=== PATIENT | female | born 1935 | race African-American/Black ===

== ENCOUNTER 2020-12-19 13:30 | Inpatient (IN) | payer BC, OTHER ==
[~2020-12-19] VITALS: Ht 170.2 cm; Wt 76.8 kg
[2020-12-19 14:31] LABS: Hematocrit 29.6 % (36.0-46.0); Hemoglobin 10.1 g/dL (12.2-16.2); Mean Corpuscular Hemoglobin 30.6 pg (28.0-32.0); Mean Corpuscular Volume 89.9 fL (80.0-100.0); Platelet Count (auto) 282 10^3/uL (140-450); Red Cell Distribution Width 13.4 % (11.8-14.3); White Blood Cell 4.5 10^3/uL (4.4-10.8)
[2020-12-19 14:39] LABS: Basophils % (manual) 0 (0.0-2.0); Blast Cells 0; Metamyelocytes % 0; Myelocytes % 0; Promyelocytes % 0; Reactive Lymphocytes 0
[2020-12-19 14:43] LABS: Albumin 3.1 g/dL (3.4-5.0); Calcium 9.7 mg/dL (8.5-10.1); Magnesium 2.4 mg/dL (1.6-2.6)
[2020-12-19 14:48] LABS: BUN/Creatinine Ratio 7.9; Bilirubin, Total 0.5 mg/dL (0.2-1.0); Total Protein 7.8 g/dL (6.4-8.2)
[2020-12-19 14:57] LABS: Band Neutrophils % (manual) 5; Eosinophils % (manual) 3 (0-7); Lymphocytes % (manual) 24 (10.0-50.0); Monocytes % (manual) 9 (0-12)
[2020-12-19] MEDS ORDERED: ACETAMINOPHEN 500 MG TAB PO PRN (17:30)
[2020-12-19] MEDS ORDERED: HYDROcodone-ACET 5/325MG TAB PO PRN (17:30)
[2020-12-19] MEDS ORDERED: ONDANSETRON HCL 4 MG/2 ML VIAL IV PRN (17:30)
[2020-12-19] MEDS: SODIUM CHLORIDE 0.9% 1,000 ML IV SCH (18:13)
[2020-12-19] MEDS ORDERED: LACTULOSE 20Gm/30ML SOLN PO PRN (18:15)
[2020-12-19 19:44] LABS: Thyroid Stimulating Hormone 0.39 uIU/mL (0.358-3.74)
[2020-12-19 20:10] VITALS: BP 191/72
[2020-12-19] MEDS ORDERED: DOCUSATE SOD 100 MG CAP PO ONE (20:45)
[2020-12-19] MEDS ORDERED: hydrALAZINE HCL 20 MG/ML VL ONE (20:50)
[2020-12-19] MEDS: hydrALAZINE HCL 20 MG/ML VL IV PRN (20:53)
[2020-12-19] MEDS: DOCUSATE SOD 100 MG CAP PO SCH (21:02)
[2020-12-19] MEDS ORDERED: ONDANSETRON HCL 4 MG/2 ML VIAL ONE (21:30)
[2020-12-19 22:00] VITALS: BP 152/62
[2020-12-20 02:49] LABS: Urine Bacteria NONE SEEN /hpf (None Seen); Urine Blood 1+ /uL (Negative); Urine Specific Gravity 1.016 (1.001-1.035); Urine WBC 23 /hpf (0 - 5)
[2020-12-20 05:00] VITALS: BP 135/62
[2020-12-20] MEDS: SODIUM CHLORIDE 0.9% 1,000 ML IV SCH ×2 (06:07→20:10)
[2020-12-20 08:27] VITALS: BP 134/70
[2020-12-20] MEDS: FAMOTIDINE 20 MG TAB PO SCH (08:41)
[2020-12-20] MEDS: PANTOPRAZOLE 40 MG TAB PO SCH (08:41)
[2020-12-20] MEDS: DOCUSATE SOD 100 MG CAP PO SCH ×2 (08:41→22:18)
[2020-12-20] MEDS ORDERED: LACTULOSE 20Gm/30ML SOLN PO PRN (12:45)
[2020-12-20 12:51] VITALS: BP 121/50
[2020-12-20] MEDS ORDERED: ALBUTEROL SULF 2.5 MG/0.5ML(0.5%) NEB SOLN NEB PRN (13:00)
[2020-12-20] MEDS: cefTRIAXone 1GM/50ML D5W 50 ML IV SCH (13:14)
[2020-12-20] MEDS ORDERED: ALBUTEROL SULF HFA 90MCG INH 200DOSE IN SCH (14:00)
[2020-12-20 16:18] VITALS: BP 121/50
[2020-12-20 16:54] VITALS: BP 111/59
[2020-12-20] MEDS ORDERED: ALBUAER3 IN (18:06)
[2020-12-20] MEDS ORDERED: APIX5TAB PO (18:06)
[2020-12-20] MEDS ORDERED: BENA5TAB5 PO (18:06)
[2020-12-20] MEDS ORDERED: LISI20TA28 PO (18:06)
[2020-12-20] MEDS ORDERED: NIFE1TAB36 PO (18:06)
[2020-12-20] MEDS ORDERED: ASPI-498 PO (18:06)
[2020-12-20] MEDS ORDERED: ANAS1TAB7 PO (18:06)
[2020-12-20 22:00] VITALS: BP_SYST 154; BP_SYST 158; BP_DIAS 71; BP_DIAS 72
[2020-12-20] MEDS: hydrALAZINE HCL 20 MG/ML VL IV PRN (22:19)
[2020-12-21 05:00] VITALS: BP 159/73
[2020-12-21] MEDS: hydrALAZINE HCL 20 MG/ML VL IV PRN (06:42)
[2020-12-21 08:00] VITALS: BP 159/73
[2020-12-21 08:14] VITALS: BP 139/63
[2020-12-21] MEDS: DOCUSATE SOD 100 MG CAP PO SCH (09:32)
[2020-12-21] MEDS: SODIUM CHLORIDE 0.9% 1,000 ML IV SCH (09:32)
[2020-12-21] MEDS: cefTRIAXone 1GM/50ML D5W 50 ML IV SCH (09:32)
[2020-12-21] MEDS: PANTOPRAZOLE 40 MG TAB PO SCH (09:33)
[2020-12-21] MEDS: FAMOTIDINE 20 MG TAB PO SCH (09:33)
[2020-12-21 19:25] LABS: Folate (Folic Acid) 11.1 ng/mL (5.38-24)
== END 2020-12-21 10:39 | disposition left against medical advice (07) | DRG 391 ==
LOC: ER 13:30 → EDBD 13:30 → OVERFLOW 17:19 → ER 19:50 → CENTRAL 20:00
PROVIDERS: ADMIT Nurse Practitioner Acute Care; ATTEND Nurse Practitioner Acute Care
DX: K59.00 Constipation, unspecified (principal); N17.0 Acute kidney failure with tubular necrosis; E44.0 Moderate protein-calorie malnutrition; R62.7 Adult failure to thrive; D64.9 Anemia, unspecified; J44.9 Chronic obstructive pulmonary disease, unspecified; Z20.822 Contact with and (suspected) exposure to COVID-19; Z85.3 Personal history of malignant neoplasm of breast; I10 Essential (primary) hypertension; Z86.73 Personal history of transient ischemic attack (TIA), and cerebral infarction without residual deficits; Z88.6 Allergy status to analgesic agent; Z88.5 Allergy status to narcotic agent; Z88.2 Allergy status to sulfonamides; I25.10 Atherosclerotic heart disease of native coronary artery without angina pectoris; Z82.49 Family history of ischemic heart disease and other diseases of the circulatory system; Z90.11 Acquired absence of right breast and nipple; Z90.710 Acquired absence of both cervix and uterus; Z95.0 Presence of cardiac pacemaker; Z53.21 Procedure and treatment not carried out due to patient leaving prior to being seen by health care provider
CPT/HCPCS: 36415; 71045; 74176; 80053; 81001; 82306; 82607; 82728; 82746; 83615; 83735; 84425; 84443; 84484; 85007; 85027; 85379; 85652; 86141; 87081; 87426; 93005; 96361; 96374; 96375; G0378; J0696; J2405

== ENCOUNTER 2021-03-31 18:52 | Emergency (ER) | payer OTHER ==
[~2021-03-31] VITALS: Ht 170.2 cm; Wt 69.9 kg
[~2021-03-31 18:52] MED LIST: ALBUAER3 IN; ANAS1TAB7 PO; APIX5TAB PO; ASPI-498 PO; BENA5TAB5 PO; LISI20TA28 PO; NIFE1TAB36 PO
[2021-03-31] MEDS ORDERED: methylPREDNISolone SOD SUCC 125 MG/2 ML VL IV ONE (19:00)
[2021-03-31 19:52] LABS: Basophils # (auto) 0.1 10 ^3/uL (0-0.2); Basophils % (auto) 1.5 % (0.0-2.0); Eosinophils # (auto) 0.1 10 ^3/uL (0-0.8); Hematocrit 32.8 % (36.0-46.0); Hemoglobin 10.9 g/dL (12.2-16.2); Lymphocytes # (auto) 1.2 10 ^3/uL (0.4-5.4); Lymphocytes % (auto) 30.4 % (10.0-50.0); Mean Corpuscular Hemoglobin 30.2 pg (28.0-32.0); Mean Corpuscular Hgb Conc. 33.2 g/dL (32.0-36.0); Mean Corpuscular Volume 90.9 fL (80.0-100.0); Monocytes # (auto) 0.3 10 ^3/uL (0-1.3); Monocytes % (auto) 8.5 % (0.0-12.0); Neutrophils # (auto) 2.2 10 ^3/uL (1.6-8.6); Neutrophils % (auto) 57.6 % (37.0-80.0); Red Blood Cells 3.61 10^6/uL (4.0-5.20); White Blood Cell 3.8 10^3/uL (4.4-10.8)
[2021-03-31 20:09] LABS: Chloride 112 mmol/L (98-107); Potassium 3.8 mmol/L (3.5-5.1); Sodium 142 mmol/L (136-145)
[2021-03-31 20:14] LABS: Alanine Aminotransferase 13 U/L (13-56); Albumin 3.4 g/dL (3.4-5.0); Anion Gap 8 (5-15); Aspartate Aminotransferase 16 U/L (15-37); BUN/Creatinine Ratio 12.8; Blood Urea Nitrogen 20 mg/dL (7-18); Calcium 9.5 mg/dL (8.5-10.1); Carbon Dioxide 22 mmol/L (21-32); GFR African American 40 mL/min; GFR Non-African American 33 mL/min; Glucose 144 mg/dL (74-106); Magnesium 2.3 mg/dL (1.6-2.6)
[2021-03-31 20:19] LABS: Alkaline Phosphatase 53 U/L (45-117); Bilirubin, Total 0.4 mg/dL (0.2-1.0); Total Protein 7.7 g/dL (6.4-8.2)
[2021-04-01] MEDS ORDERED: predniSONE 20 MG TAB PO ONE (00:15)
[2021-04-01 00:50] VITALS: BP 178/84
== END 2021-04-01 06:34 | disposition home or self-care (01) ==
LOC: EDBD 18:52 → ER 18:54
DX: R06.00 Dyspnea, unspecified (principal); F41.9 Anxiety disorder, unspecified; I25.2 Old myocardial infarction; Z86.73 Personal history of transient ischemic attack (TIA), and cerebral infarction without residual deficits; Z90.710 Acquired absence of both cervix and uterus; Z95.0 Presence of cardiac pacemaker; Z88.6 Allergy status to analgesic agent; Z88.2 Allergy status to sulfonamides
CPT/HCPCS: 36415; 71045; 80053; 83735; 83880; 84484; 85025; 85379; 93005

== ENCOUNTER 2021-04-10 13:51 | Emergency (ER) | payer OTHER ==
[2021-04-10] MEDS ORDERED: ALBUTEROL SULF 2.5 MG/0.5ML(0.5%) NEB SOLN NEB ONE (14:30)
[2021-04-10] MEDS ORDERED: SIMV-8 PO (14:33)
[2021-04-10 14:43] LABS: Basophils # (auto) 0 10 ^3/uL (0-0.2); Basophils % (auto) 1.2 % (0.0-2.0); Eosinophils # (auto) 0.1 10 ^3/uL (0-0.8); Eosinophils % (auto) 2.2 % (0.0-7.0); Hematocrit 34.7 % (36.0-46.0); Hemoglobin 11.3 g/dL (12.2-16.2); Lymphocytes % (auto) 27.7 % (10.0-50.0); Mean Corpuscular Hemoglobin 29.9 pg (28.0-32.0); Mean Corpuscular Hgb Conc. 32.5 g/dL (32.0-36.0); Mean Corpuscular Volume 91.8 fL (80.0-100.0); Monocytes # (auto) 0.4 10 ^3/uL (0-1.3); Monocytes % (auto) 9.9 % (0.0-12.0); Neutrophils # (auto) 2.1 10 ^3/uL (1.6-8.6); Nucleated Red Blood Cells % 0.2 %; Red Blood Cells 3.78 10^6/uL (4.0-5.20); Red Cell Distribution Width 14.2 % (11.8-14.3); White Blood Cell 3.6 10^3/uL (4.4-10.8)
[2021-04-10 15:02] LABS: INR 1.05 (0.9-1.15); Partial Thromboplastin Time 24.3 sec (23.6-33.0)
[2021-04-10 15:07] LABS: Albumin 3.4 g/dL (3.4-5.0); Anion Gap 7 (5-15); Blood Urea Nitrogen 17 mg/dL (7-18); Calcium 9.7 mg/dL (8.5-10.1); Carbon Dioxide 23 mmol/L (21-32); Chloride 112 mmol/L (98-107); Glucose 96 mg/dL (74-106); Potassium 4.3 mmol/L (3.5-5.1); Sodium 142 mmol/L (136-145)
[2021-04-10 15:12] LABS: Alanine Aminotransferase 17 U/L (13-56); Alkaline Phosphatase 47 U/L (45-117); Aspartate Aminotransferase 19 U/L (15-37); Bilirubin, Total 0.4 mg/dL (0.2-1.0); GFR African American 50 mL/min; GFR Non-African American 41 mL/min; Total Protein 7.6 g/dL (6.4-8.2)
[2021-04-10] MEDS ORDERED: SODIUM CHLORIDE 0.9% 500 ML IV ONE (17:15)
[2021-04-10 19:40] VITALS: BP 148/69
[2021-04-10 20:21] LABS: Urine Bacteria NONE SEEN /hpf (None Seen); Urine Blood Negative /uL (Negative); Urine Specific Gravity 1.013 (1.001-1.035); Urine WBC 1 /hpf (0 - 5)
== END 2021-04-10 21:18 | disposition home or self-care (01) ==
LOC: EDBD 13:51 → ER 13:51
DX: R06.00 Dyspnea, unspecified (principal); C79.51 Secondary malignant neoplasm of bone; I25.10 Atherosclerotic heart disease of native coronary artery without angina pectoris; E78.5 Hyperlipidemia, unspecified; I10 Essential (primary) hypertension; I25.2 Old myocardial infarction; Z86.73 Personal history of transient ischemic attack (TIA), and cerebral infarction without residual deficits; Z90.710 Acquired absence of both cervix and uterus; Z95.0 Presence of cardiac pacemaker; Z20.822 Contact with and (suspected) exposure to COVID-19
CPT/HCPCS: 36415; 71045; 73502; 73552; 80053; 81001; 83735; 83880; 84484; 85025; 85379; 85610; 85730; 87426; 93005; 94640; 96360; 96361; 99285; J7040

== ENCOUNTER 2021-04-26 08:19 | Emergency (ER) | payer OTHER ==
[~2021-04-26] VITALS: Ht 167.6 cm; Wt 63.5 kg
[~2021-04-26 08:19] MED LIST changes: -BENA5TAB5 PO; +BENA5TAB9 PO; +SIMV-8 PO
[2021-04-26 08:35] VITALS: BP 136/76
[2021-04-26] MEDS ORDERED: SODIUM CHLORIDE 0.9% 1,000 ML IV ONE (08:45)
[2021-04-26] MEDS ORDERED: DOCUSATE SOD 100 MG CAP PO ONE (08:45)
[2021-04-26 09:39] LABS: Basophils # (auto) 0.1 10 ^3/uL (0-0.2); Basophils % (auto) 2.3 % (0.0-2.0); Eosinophils # (auto) 0.1 10 ^3/uL (0-0.8); Hematocrit 34.7 % (36.0-46.0); Hemoglobin 11.2 g/dL (12.2-16.2); Lymphocytes % (auto) 35.2 % (10.0-50.0); Mean Corpuscular Hemoglobin 29.5 pg (28.0-32.0); Mean Corpuscular Hgb Conc. 32.2 g/dL (32.0-36.0); Mean Corpuscular Volume 91.6 fL (80.0-100.0); Monocytes # (auto) 0.2 10 ^3/uL (0-1.3); Monocytes % (auto) 8.6 % (0.0-12.0); Neutrophils # (auto) 1.3 10 ^3/uL (1.6-8.6); Neutrophils % (auto) 48.9 % (37.0-80.0); Nucleated Red Blood Cells % 0.1 %; Red Blood Cells 3.79 10^6/uL (4.0-5.20); White Blood Cell 2.8 10^3/uL (4.4-10.8)
[2021-04-26 09:54] LABS: Albumin 3.5 g/dL (3.4-5.0); Anion Gap 3 (5-15); Blood Urea Nitrogen 15 mg/dL (7-18); Calcium 9.8 mg/dL (8.5-10.1); Carbon Dioxide 27 mmol/L (21-32); Chloride 111 mmol/L (98-107); Glucose 100 mg/dL (74-106); Potassium 4.1 mmol/L (3.5-5.1); Sodium 141 mmol/L (136-145)
[2021-04-26 10:01] LABS: Alanine Aminotransferase 21 U/L (13-56); Alkaline Phosphatase 48 U/L (45-117); Aspartate Aminotransferase 22 U/L (15-37); BUN/Creatinine Ratio 13.8; Bilirubin, Total 0.3 mg/dL (0.2-1.0); GFR African American 61 mL/min; GFR Non-African American 51 mL/min; Total Protein 7.7 g/dL (6.4-8.2)
[2021-04-26 12:12] LABS: Urine Bacteria NONE SEEN /hpf (None Seen); Urine Blood Negative /uL (Negative); Urine Specific Gravity 1.017 (1.001-1.035); Urine WBC 1 /hpf (0 - 5)
== END 2021-04-26 11:47 | disposition home or self-care (01) ==
LOC: EDBD 08:19 → ER 08:19
DX: R10.11 Right upper quadrant pain (principal); D64.9 Anemia, unspecified; I25.10 Atherosclerotic heart disease of native coronary artery without angina pectoris; I10 Essential (primary) hypertension; I25.2 Old myocardial infarction; E03.9 Hypothyroidism, unspecified; E78.5 Hyperlipidemia, unspecified; E11.9 Type 2 diabetes mellitus without complications; Z86.73 Personal history of transient ischemic attack (TIA), and cerebral infarction without residual deficits; Z95.0 Presence of cardiac pacemaker; Z90.710 Acquired absence of both cervix and uterus; Z79.82 Long term (current) use of aspirin; Z79.899 Other long term (current) drug therapy; Z88.2 Allergy status to sulfonamides; Z88.5 Allergy status to narcotic agent
CPT/HCPCS: 36415; 71045; 74176; 80053; 81001; 84484; 85025

== ENCOUNTER 2021-05-25 11:05 | Emergency (ER) | payer OTHER ==
[~2021-05-25] VITALS: Ht 170.2 cm; Wt 69.4 kg
[2021-05-25 11:56] VITALS: BP 118/56
[2021-05-25] MEDS ORDERED: FLEET ENEMA(ADULT) 135 ML PR ONE (12:15)
[2021-05-25 13:51] LABS: Basophils # (auto) 0 10 ^3/uL (0-0.2); Basophils % (auto) 1.1 % (0.0-2.0); Eosinophils # (auto) 0.1 10 ^3/uL (0-0.8); Eosinophils % (auto) 2.7 % (0.0-7.0); Hematocrit 35.3 % (36.0-46.0); Hemoglobin 11.7 g/dL (12.2-16.2); Lymphocytes % (auto) 26.5 % (10.0-50.0); Mean Corpuscular Hgb Conc. 33.1 g/dL (32.0-36.0); Mean Corpuscular Volume 90.8 fL (80.0-100.0); Monocytes # (auto) 0.4 10 ^3/uL (0-1.3); Monocytes % (auto) 9.5 % (0.0-12.0); Neutrophils # (auto) 2.2 10 ^3/uL (1.6-8.6); Neutrophils % (auto) 60.2 % (37.0-80.0); Nucleated Red Blood Cells % 0.1 %; Red Blood Cells 3.89 10^6/uL (4.0-5.20); Red Cell Distribution Width 14.3 % (11.8-14.3); White Blood Cell 3.7 10^3/uL (4.4-10.8)
[2021-05-25 13:55] LABS: Albumin 3.8 g/dL (3.4-5.0); Calcium 9.9 mg/dL (8.5-10.1); Potassium 4.9 mmol/L (3.5-5.1)
[2021-05-25 13:58] LABS: BUN/Creatinine Ratio 14.5; Bilirubin, Total 0.7 mg/dL (0.2-1.0); Total Protein 8.4 g/dL (6.4-8.2)
[2021-05-27] MEDS ORDERED: fentaNYL Drip 2500mCg/250mlNS 250 ML IV ONE (18:03)
== END 2021-05-25 19:49 | disposition left against medical advice (07) ==
LOC: ER 11:05
DX: K59.00 Constipation, unspecified (principal); I10 Essential (primary) hypertension; E78.5 Hyperlipidemia, unspecified; I25.2 Old myocardial infarction; Z86.73 Personal history of transient ischemic attack (TIA), and cerebral infarction without residual deficits; Z53.29 Procedure and treatment not carried out because of patient's decision for other reasons; Z90.710 Acquired absence of both cervix and uterus; Z95.0 Presence of cardiac pacemaker; Z88.6 Allergy status to analgesic agent; Z88.2 Allergy status to sulfonamides
CPT/HCPCS: 36415; 74176; 80053; 85025; 93005

== ENCOUNTER → 2021-08-09 | Outpatient (CLI) | payer OTHER ==
[2021-08-09 10:16] LABS: Urine Bacteria FEW /hpf (None Seen); Urine Blood Negative /uL (Negative); Urine Mucus FEW (None Seen); Urine Specific Gravity 1.023 (1.001-1.035); Urine WBC 2 /hpf (0 - 5)
[2021-08-09 10:32] LABS: Potassium 4.1 mmol/L (3.5-5.1)
[2021-08-09 10:45] LABS: Basophils # (auto) 0 10 ^3/uL (0-0.2); Basophils % (auto) 1.6 % (0.0-2.0); Eosinophils # (auto) 0.1 10 ^3/uL (0-0.8); Eosinophils % (auto) 2.4 % (0.0-7.0); Hematocrit 36.1 % (36.0-46.0); Hemoglobin 11.8 g/dL (12.2-16.2); Lymphocytes # (auto) 0.9 10 ^3/uL (0.4-5.4); Lymphocytes % (auto) 32.4 % (10.0-50.0); Mean Corpuscular Hemoglobin 29.7 pg (28.0-32.0); Mean Corpuscular Hgb Conc. 32.8 g/dL (32.0-36.0); Mean Corpuscular Volume 90.7 fL (80.0-100.0); Monocytes # (auto) 0.3 10 ^3/uL (0-1.3); Neutrophils # (auto) 1.5 10 ^3/uL (1.6-8.6); Neutrophils % (auto) 53.6 % (37.0-80.0); Nucleated Red Blood Cells % 0.2 %; Red Blood Cells 3.98 10^6/uL (4.0-5.20); Red Cell Distribution Width 13.2 % (11.8-14.3); White Blood Cell 2.8 10^3/uL (4.4-10.8)
[2021-08-09 10:48] LABS: Albumin 3.8 g/dL (3.4-5.0); BUN/Creatinine Ratio 15.3; Bilirubin, Total 0.4 mg/dL (0.2-1.0); Calcium 10.2 mg/dL (8.5-10.1); Total Protein 8.6 g/dL (6.4-8.2)
== END | disposition home or self-care (01) ==
LOC: LAB 09:05
PROVIDERS: ATTEND Student in an Organized Health Care Education/Training Program
DX: I10 Essential (primary) hypertension (principal)
CPT/HCPCS: 36415; 80053; 80061; 81001; 84443; 85025

== ENCOUNTER 2021-08-11 08:49 | Inpatient (IN) | payer OTHER, MEDICAID ==
[~2021-08-11] VITALS: Ht 170.2 cm; Wt 76.6 kg
[2021-08-11 13:20] LABS: Basophils # (auto) 0 10 ^3/uL (0-0.2); Basophils % (auto) 1.3 % (0.0-2.0); Eosinophils # (auto) 0.1 10 ^3/uL (0-0.8); Eosinophils % (auto) 2.7 % (0.0-7.0); Hematocrit 36.8 % (36.0-46.0); Hemoglobin 12.1 g/dL (12.2-16.2); Lymphocytes % (auto) 34.7 % (10.0-50.0); Mean Corpuscular Hemoglobin 29.9 pg (28.0-32.0); Mean Corpuscular Volume 90.5 fL (80.0-100.0); Monocytes # (auto) 0.2 10 ^3/uL (0-1.3); Monocytes % (auto) 8.1 % (0.0-12.0); Neutrophils # (auto) 1.6 10 ^3/uL (1.6-8.6); Neutrophils % (auto) 53.2 % (37.0-80.0); Nucleated Red Blood Cells % 0.2 %; Red Blood Cells 4.06 10^6/uL (4.0-5.20); Red Cell Distribution Width 13.5 % (11.8-14.3)
[2021-08-11 13:34] LABS: Albumin 3.7 g/dL (3.4-5.0); BUN/Creatinine Ratio 15.7; Calcium 9.9 mg/dL (8.5-10.1); Magnesium 2.6 mg/dL (1.6-2.6)
[2021-08-11 13:36] LABS: Bilirubin, Total 0.4 mg/dL (0.2-1.0); Total Protein 8.6 g/dL (6.4-8.2)
[2021-08-12] MEDS ORDERED: TEMAZEPAM 15 MG CAP PO PRN (04:45)
[2021-08-12] MEDS ORDERED: NITROGLYCERIN 0.4 MG SL TAB SL PRN (04:45)
[2021-08-12] MEDS ORDERED: ONDANSETRON HCL 4 MG/2 ML VIAL IV PRN (04:45)
[2021-08-12] MEDS ORDERED: cloNIDine HCL 0.1 MG TAB PO PRN (04:45)
[2021-08-12 09:45] LABS: INR 1.08 (0.9-1.15); Partial Thromboplastin Time 22.4 sec (23.6-33.0)
[2021-08-12] MEDS ORDERED: ASPirin 81 mg TAB PO SCH (10:00)
[2021-08-12] MEDS: LISINOPRIL 20 MG TAB PO SCH (10:23)
[2021-08-12] MEDS: NIFEdipine ER 30 MG TAB PO SCH (10:23)
[2021-08-12] MEDS: PANTOPRAZOLE 40 MG TAB PO SCH (10:23)
[2021-08-12 19:07] VITALS: BP 140/51
[2021-08-12 22:00] VITALS: BP 119/50
[2021-08-12] MEDS: ATORVASTATIN 20 MG TAB PO SCH (22:00)
[2021-08-12 22:57] LABS: Folate (Folic Acid) 14.42 ng/mL (5.38-24)
[2021-08-13] MEDS: ACETAMINOPHEN 325 MG TAB PO PRN (05:07)
[2021-08-13 05:30] VITALS: BP 118/53
[2021-08-13 06:57] LABS: Basophils # (auto) 0.1 10 ^3/uL (0-0.2); Basophils % (auto) 1.6 % (0.0-2.0); Eosinophils # (auto) 0.1 10 ^3/uL (0-0.8); Hematocrit 33.6 % (36.0-46.0); Hemoglobin 11.3 g/dL (12.2-16.2); Lymphocytes % (auto) 31.2 % (10.0-50.0); Mean Corpuscular Hgb Conc. 33.5 g/dL (32.0-36.0); Mean Corpuscular Volume 89.6 fL (80.0-100.0); Monocytes # (auto) 0.4 10 ^3/uL (0-1.3); Monocytes % (auto) 11.7 % (0.0-12.0); Neutrophils # (auto) 1.6 10 ^3/uL (1.6-8.6); Neutrophils % (auto) 51.5 % (37.0-80.0); Nucleated Red Blood Cells % 0.2 %; Red Blood Cells 3.75 10^6/uL (4.0-5.20); Red Cell Distribution Width 12.9 % (11.8-14.3); White Blood Cell 3.2 10^3/uL (4.4-10.8)
[2021-08-13 08:42] VITALS: BP 147/73
[2021-08-13] MEDS: NIFEdipine ER 30 MG TAB PO SCH (08:50)
[2021-08-13] MEDS: APIXABAN 5 MG TAB PO SCH ×2 (08:51→21:13)
[2021-08-13] MEDS: PANTOPRAZOLE 40 MG TAB PO SCH (08:51)
[2021-08-13] MEDS: LISINOPRIL 20 MG TAB PO SCH (08:52)
[2021-08-13] MEDS ORDERED: APIX2.5T PO (09:15)
[2021-08-13 17:13] VITALS: BP 141/73
[2021-08-13] MEDS: ATORVASTATIN 20 MG TAB PO SCH (21:12)
[2021-08-13 22:00] VITALS: BP 137/65
[2021-08-14 05:00] VITALS: BP 123/64
[2021-08-14] MEDS: PANTOPRAZOLE 40 MG TAB PO SCH (08:39)
[2021-08-14] MEDS: APIXABAN 5 MG TAB PO SCH ×2 (08:39→21:16)
[2021-08-14] MEDS: NIFEdipine ER 30 MG TAB PO SCH (08:40)
[2021-08-14] MEDS: ACETAMINOPHEN 325 MG TAB PO PRN (08:40)
[2021-08-14] MEDS: LISINOPRIL 20 MG TAB PO SCH (08:41)
[2021-08-14 09:00] VITALS: BP 132/71
[2021-08-14] MEDS ORDERED: LACTULOSE 20Gm/30ML SOLN PO ONE (12:15)
[2021-08-14 12:57] VITALS: BP 100/67
[2021-08-14] MEDS: ALPRAZolam 0.5 MG TAB PO SCH ×2 (14:00→21:16)
[2021-08-14 16:49] VITALS: BP 97/51
[2021-08-14] MEDS: ATORVASTATIN 20 MG TAB PO SCH (21:16)
[2021-08-14 22:00] VITALS: BP 119/50
[2021-08-15 05:00] VITALS: BP 142/75
[2021-08-15] MEDS: ALPRAZolam 0.5 MG TAB PO SCH ×3 (05:08→21:23)
[2021-08-15] MEDS: ACETAMINOPHEN 325 MG TAB PO PRN (05:09)
[2021-08-15 09:00] VITALS: BP 124/71
[2021-08-15] MEDS: APIXABAN 5 MG TAB PO SCH ×2 (09:56→21:22)
[2021-08-15] MEDS: NIFEdipine ER 30 MG TAB PO SCH (09:57)
[2021-08-15] MEDS: LISINOPRIL 20 MG TAB PO SCH (09:57)
[2021-08-15] MEDS: PANTOPRAZOLE 40 MG TAB PO SCH (09:57)
[2021-08-15 13:00] VITALS: BP 149/69
[2021-08-15 17:00] VITALS: BP 103/66
[2021-08-15] MEDS: ATORVASTATIN 20 MG TAB PO SCH (21:23)
[2021-08-15 22:00] VITALS: BP 125/61
[2021-08-16 05:00] VITALS: BP 112/66
[2021-08-16] MEDS: ALPRAZolam 0.5 MG TAB PO SCH ×2 (06:00→14:42)
[2021-08-16 08:30] VITALS: BP 109/73
[2021-08-16 09:00] VITALS: BP 109/73
[2021-08-16] MEDS: NIFEdipine ER 30 MG TAB PO SCH (09:09)
[2021-08-16] MEDS: APIXABAN 5 MG TAB PO SCH (09:09)
[2021-08-16] MEDS: PANTOPRAZOLE 40 MG TAB PO SCH (09:10)
[2021-08-16] MEDS: LISINOPRIL 20 MG TAB PO SCH (09:10)
[2021-08-16 13:00] VITALS: BP 123/66
[2021-08-16 16:24] VITALS: BP 123/66
[2021-08-16 17:00] VITALS: BP 114/64
== END 2021-08-16 21:48 | disposition home health service (06) | DRG 281 ==
LOC: ER 08:49 → EDBD 08:49 → TELE 08-12 04:49 → TELE-WESTW 08-12 18:04 → TELE-CENTR 08-13 18:05
PROVIDERS: ADMIT Nurse Practitioner; ATTEND Internal Medicine
DX: I21.4 Non-ST elevation (NSTEMI) myocardial infarction (principal); J44.1 Chronic obstructive pulmonary disease with (acute) exacerbation; I16.0 Hypertensive urgency; I48.0 Paroxysmal atrial fibrillation; R55 Syncope and collapse; E07.9 Disorder of thyroid, unspecified; F41.9 Anxiety disorder, unspecified; E11.9 Type 2 diabetes mellitus without complications; E78.5 Hyperlipidemia, unspecified; I11.0 Hypertensive heart disease with heart failure; I25.10 Atherosclerotic heart disease of native coronary artery without angina pectoris; I50.9 Heart failure, unspecified; F03.90 Unspecified dementia, unspecified severity, without behavioral disturbance, psychotic disturbance, mood disturbance, and anxiety; Z20.822 Contact with and (suspected) exposure to COVID-19; Z82.49 Family history of ischemic heart disease and other diseases of the circulatory system; Z95.0 Presence of cardiac pacemaker; I25.2 Old myocardial infarction; Z86.718 Personal history of other venous thrombosis and embolism; Z86.73 Personal history of transient ischemic attack (TIA), and cerebral infarction without residual deficits; Z90.710 Acquired absence of both cervix and uterus; Z88.5 Allergy status to narcotic agent; Z88.2 Allergy status to sulfonamides
CPT/HCPCS: 36415; 70450; 71045; 73030; 80053; 82607; 82746; 83735; 83880; 84443; 84484; 85025; 85610; 85730; 87426; 87804; 93005; 93306; 97110; 97116; 97163; 97530; G0378

== ENCOUNTER 2021-08-19 08:21 | Inpatient (IN) | payer OTHER, MEDICAID ==
[~2021-08-19] VITALS: Ht 162.6 cm; Wt 72.6 kg
[~2021-08-19 08:21] MED LIST changes: +APIX2.5T PO; -APIX5TAB PO
[2021-08-19 11:21] LABS: Basophils # (auto) 0.1 10 ^3/uL (0-0.2); Basophils % (auto) 1.4 % (0.0-2.0); Eosinophils # (auto) 0.1 10 ^3/uL (0-0.8); Eosinophils % (auto) 2.9 % (0.0-7.0); Hematocrit 35.3 % (36.0-46.0); Hemoglobin 11.6 g/dL (12.2-16.2); Lymphocytes # (auto) 0.9 10 ^3/uL (0.4-5.4); Lymphocytes % (auto) 26.7 % (10.0-50.0); Mean Corpuscular Hemoglobin 29.6 pg (28.0-32.0); Mean Corpuscular Hgb Conc. 32.8 g/dL (32.0-36.0); Mean Corpuscular Volume 90.3 fL (80.0-100.0); Monocytes # (auto) 0.3 10 ^3/uL (0-1.3); Monocytes % (auto) 7.9 % (0.0-12.0); Neutrophils # (auto) 2.1 10 ^3/uL (1.6-8.6); Neutrophils % (auto) 61.1 % (37.0-80.0); Nucleated Red Blood Cells % 0.3 %; Red Blood Cells 3.91 10^6/uL (4.0-5.20); Red Cell Distribution Width 13.2 % (11.8-14.3); White Blood Cell 3.5 10^3/uL (4.4-10.8)
[2021-08-19 11:35] LABS: Calcium 9.7 mg/dL (8.5-10.1); Potassium 3.6 mmol/L (3.5-5.1)
[2021-08-19 11:42] LABS: Albumin 3.7 g/dL (3.4-5.0); BUN/Creatinine Ratio 17.5; Bilirubin, Total 0.4 mg/dL (0.2-1.0); Total Protein 8.7 g/dL (6.4-8.2)
[2021-08-19] MEDS ORDERED: ASPirin 81 mg TAB PO ONE (12:00)
[2021-08-19 14:26] LABS: Urine Bacteria FEW /hpf (None Seen); Urine Blood Negative /uL (Negative); Urine Hyaline Cast FEW /lpf (0 - 2); Urine Mucus FEW (None Seen); Urine Specific Gravity 1.024 (1.001-1.035); Urine WBC 3 /hpf (0 - 5)
[2021-08-19] MEDS ORDERED: ONDANSETRON HCL 4 MG/2 ML VIAL IV PRN (22:45)
[2021-08-19] MEDS ORDERED: DOCUSATE SOD 100 MG CAP PO PRN (22:45)
[2021-08-19] MEDS ORDERED: ACETAMINOPHEN 325 MG TAB PO PRN (22:45)
[2021-08-20] MEDS ORDERED: MORPHINE SULFATE INJECTION 2 MG/ML SYRG IV PRN
[2021-08-20] MEDS ORDERED: NITROGLYCERIN 0.4 MG SL TAB SL PRN
[2021-08-20] MEDS ORDERED: SODIUM CHLOR 0.9% PF (SALINE LOCK) 10ML VIAL/SYR IV SCH (06:00)
[2021-08-20 06:34] LABS: Basophils # (auto) 0 10 ^3/uL (0-0.2); Basophils % (auto) 1.3 % (0.0-2.0); Eosinophils # (auto) 0.1 10 ^3/uL (0-0.8); Eosinophils % (auto) 3.1 % (0.0-7.0); Hematocrit 32.8 % (36.0-46.0); Hemoglobin 10.6 g/dL (12.2-16.2); Lymphocytes # (auto) 1.1 10 ^3/uL (0.4-5.4); Lymphocytes % (auto) 32.1 % (10.0-50.0); Mean Corpuscular Hemoglobin 29.2 pg (28.0-32.0); Mean Corpuscular Hgb Conc. 32.4 g/dL (32.0-36.0); Mean Corpuscular Volume 90.1 fL (80.0-100.0); Monocytes # (auto) 0.3 10 ^3/uL (0-1.3); Monocytes % (auto) 9.1 % (0.0-12.0); Neutrophils # (auto) 1.9 10 ^3/uL (1.6-8.6); Neutrophils % (auto) 54.4 % (37.0-80.0); Nucleated Red Blood Cells % 0.3 %; Red Blood Cells 3.64 10^6/uL (4.0-5.20); White Blood Cell 3.5 10^3/uL (4.4-10.8)
[2021-08-20 08:25] LABS: Albumin 3.4 g/dL (3.4-5.0); BUN/Creatinine Ratio 17.1; Potassium 3.7 mmol/L (3.5-5.1)
[2021-08-20 08:28] LABS: Bilirubin, Total 0.5 mg/dL (0.2-1.0); Total Protein 7.8 g/dL (6.4-8.2)
[2021-08-20 09:29] VITALS: BP 186/77
[2021-08-20] MEDS ORDERED: ASPirin 81 mg TAB PO SCH (10:00)
[2021-08-20] MEDS ORDERED: MULTIPLE VITAMIN TAB PO SCH (10:00)
[2021-08-20] MEDS ORDERED: FAMOTIDINE (10MG/ML) 2ML VL IV SCH (10:00)
[2021-08-20] MEDS ORDERED: ZINC SULFATE 220mg CAP or TAB PO SCH (10:00)
[2021-08-20] MEDS ORDERED: APIXABAN 2.5 MG TAB PO SCH (10:00)
[2021-08-20] MEDS ORDERED: ASCORBIC ACID 500 MG TAB PO SCH (10:00)
== END 2021-08-20 09:22 | disposition left against medical advice (07) | DRG 311 ==
LOC: ER 08:21 → EDBD 08:21 → TELE 09:28
PROVIDERS: ADMIT Nurse Practitioner Family; ATTEND Internal Medicine
DX: I24.9 Acute ischemic heart disease, unspecified (principal); W18.30XA Fall on same level, unspecified, initial encounter; D64.9 Anemia, unspecified; E78.5 Hyperlipidemia, unspecified; I10 Essential (primary) hypertension; Y93.89 Activity, other specified; I25.10 Atherosclerotic heart disease of native coronary artery without angina pectoris; Z20.822 Contact with and (suspected) exposure to COVID-19; Y92.002 Bathroom of unspecified non-institutional (private) residence as the place of occurrence of the external cause; Y99.9 Unspecified external cause status; I25.2 Old myocardial infarction; Z86.73 Personal history of transient ischemic attack (TIA), and cerebral infarction without residual deficits; Z90.710 Acquired absence of both cervix and uterus; Z95.0 Presence of cardiac pacemaker; Z88.5 Allergy status to narcotic agent; Z88.2 Allergy status to sulfonamides; Z82.49 Family history of ischemic heart disease and other diseases of the circulatory system
CPT/HCPCS: 36415; 71045; 80053; 81001; 83880; 84484; 85025; 87426; 93005; G0378

== ENCOUNTER 2021-10-31 09:27 | Emergency (ER) | payer OTHER, MEDICAID ==
[~2021-10-31] VITALS: Ht 162.6 cm; Wt 68.9 kg
[2021-10-31 10:37] LABS: Albumin 3.3 g/dL (3.4-5.0); Calcium 9.6 mg/dL (8.5-10.1); Potassium 3.7 mmol/L (3.5-5.1)
[2021-10-31 10:40] LABS: BUN/Creatinine Ratio 5.8; Bilirubin, Total 0.5 mg/dL (0.2-1.0); Total Protein 7.4 g/dL (6.4-8.2)
[2021-10-31 10:41] LABS: Basophils # (auto) 0.1 10 ^3/uL (0-0.2); Eosinophils # (auto) 0.1 10 ^3/uL (0-0.8); Eosinophils % (auto) 2.9 % (0.0-7.0); Hematocrit 25.9 % (36.0-46.0); Hemoglobin 8.7 g/dL (12.2-16.2); Lymphocytes # (auto) 0.8 10 ^3/uL (0.4-5.4); Lymphocytes % (auto) 23.6 % (10.0-50.0); Mean Corpuscular Hgb Conc. 33.5 g/dL (32.0-36.0); Mean Corpuscular Volume 89.5 fL (80.0-100.0); Monocytes # (auto) 0.4 10 ^3/uL (0-1.3); Monocytes % (auto) 11.8 % (0.0-12.0); Neutrophils % (auto) 59.7 % (37.0-80.0); Nucleated Red Blood Cells % 0.2 %; Red Blood Cells 2.89 10^6/uL (4.0-5.20); Red Cell Distribution Width 16.3 % (11.8-14.3); White Blood Cell 3.4 10^3/uL (4.4-10.8)
[2021-10-31 14:04] LABS: Urine Bacteria NONE SEEN /hpf (None Seen); Urine Blood Negative /uL (Negative); Urine Mucus FEW (None Seen); Urine Specific Gravity 1.017 (1.001-1.035); Urine WBC 2 /hpf (0 - 5)
[2021-10-31 17:00] VITALS: BP 145/67
== END 2021-10-31 18:48 | disposition home or self-care (01) ==
LOC: ER 09:27 → EDBD 09:27 → ER 18:48
DX: D64.9 Anemia, unspecified (principal); M79.10 Myalgia, unspecified site; N39.0 Urinary tract infection, site not specified; I25.10 Atherosclerotic heart disease of native coronary artery without angina pectoris; E44.1 Mild protein-calorie malnutrition; I11.0 Hypertensive heart disease with heart failure; I50.9 Heart failure, unspecified; J44.9 Chronic obstructive pulmonary disease, unspecified; E78.5 Hyperlipidemia, unspecified; Z90.710 Acquired absence of both cervix and uterus; Z86.73 Personal history of transient ischemic attack (TIA), and cerebral infarction without residual deficits; Z68.26 Body mass index [BMI] 26.0-26.9, adult
CPT/HCPCS: 36415; 71045; 80053; 81001; 84484; 85025; 93005